=== PATIENT | female | born 1985 | race Caucasian/White ===

== ENCOUNTER 2017-10-13 14:17 | Emergency (ER) | payer OTHER ==
[2017-10-13] MEDS ORDERED: Lactated Ringer's 1,000 ML IV SCH (15:00)
[2017-10-13 15:22] LABS: SQUAMOUS EPITHIAL 8 /hpf (0-5); URINE BACTERIA OCC (<OCC); URINE BILIRUBIN NEGATIVE (NEGATIVE); URINE BLOOD NEGATIVE (NEGATIVE); URINE CLARITY Hazy (Clear); URINE COLOR Yellow (YELLOW); URINE GLUCOSE (UA) NORMAL (Normal); URINE LEUKOCYTE ESTERASE NEG Leu/uL (Negative); URINE PROTEIN NEGATIVE (NEGATIVE); URINE UROBILINOGEN NORMAL mg/dL (0.2-1.0)
--- NOTE | 2017-10-13 15:47 | OBDCSUM ---
Datetime: 10/13/2017 15:45 Discharged to, Provider: Home Follow up at, Provider: 2-3days Follow up in weeks, Provider: clinic Discharge Comment, Provider: pt ferls better. dc home ptl given po hy f/u in pmd in 2-3 days Discharge Diagnosis Prov Other: 31week nst r/o rom
--- NOTE | 2017-10-13 15:48 | OBHP ---
Datetime: 10/13/2017 14:54 IP Adm Impression: , intrauterine IP Admit Plan: Observation/Evaluation Admit Comment, IP Provider: Subjective: CC: "Gush of fluid from Vagina" HPI: Patient is a 32 year old female who presents to the [facility] emergency department for evaluation and treatment of a gush of fluid from vagina, which occured at approximately 1:30pm on 10/13/2017 whic h occured without any provoking event. Patient states she was experiencing pelvic cramps which occure d after experiencing the flulid leakage. The cramps on continuous in nature and are describes as bein g dull and achy in nature. States the estimated due date is December 11, 2017. Currently is experiencing movement. Denies fever, chills, chest pain, SOB, abdominal pain, N/V, diarrhea, constipation, and urinary sy mtpoms. 12 point ROS negative except as indicated in HPI. 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 Pre-Term : - patient membranes are intact, nitrizine test is negative - LR @ 125 - UA ordered and pending - Patient seen, case reviewed with, and plan approved by attending physician, Dr. Holm. ua neg pt ferls better. dc home ptl given po hy f/u in pmd in 2-3 days Extremities - PN: Normal Abdomen - PN: Normal Breast - PN: Not Done Lungs - PN: Normal Heart - PN: Normal Neurologic - PN: Normal HEENT - PN: Normal General - PN: Normal Membranes, Provider: Intact Comments, ACOG Physical Exam: sse neh ntrazine neg,no pooling Nitrazine Provider: Negative EGA AdmitDate IP: 31.4 Vital Signs Provider: Reviewed IP Chief Complaint: Suspected ruptured membranes Dilatation, Provider: 0
[2017-10-13 20:33] VITALS: BP 102/57; PULSE 90; RESP 18; TEMP 97.2; O2SAT 98
== END 2017-10-13 16:31 | disposition home or self-care (01) ==
LOC: C.EROB 14:17
DX: O26.893 Other specified pregnancy related conditions, third trimester (principal); Z3A.31 31 weeks gestation of pregnancy
CPT/HCPCS: 81001; 99283; J7120

== ENCOUNTER 2018-07-25 07:26 | Day surgery (SDC) | payer MEDICAID ==
[2018-05-31 14:39] VITALS: BMI 27.4
[2018-07-25] MEDS ORDERED: Bupivacaine 0.25% 20 ML INJ IJ ONE (11:58)
[2018-07-25] MEDS ORDERED: Lidocaine/Epinephrine 1% 1:100000 10 ML IJ ONE (11:58)
[2018-07-25] MEDS ORDERED: ceFAZolin 1 gm in NS 2 GM/200 ML BAG IVPB ONE (11:59)
[2018-07-25] MEDS ORDERED: Propofol 10 mg/ml Inj (20 ML) ONE (12:00)
[2018-07-25] MEDS ORDERED: Midazolam 2 MG/2 ML VIAL ONE (12:01)
[2018-07-25] MEDS ORDERED: Rocuronium 10 mg/ml (5 ml) ONE (12:07)
[2018-07-25] MEDS ORDERED: Bupivacaine Liposomal Inj 20 ml INJ ONE (12:39)
[2018-07-25] MEDS ORDERED: Sodium Chloride 0.9% 40 ML IV ONE (12:50)
[2018-07-25] MEDS ORDERED: Neostigmine 1:1000 (1 mg/ml) Inj ONE (14:20)
[2018-07-25] MEDS ORDERED: Morphine 4 MG/ML VIAL ONE (14:23)
[2018-07-25] MEDS ORDERED: Lactated Ringer's 1,000 ML IV ONE (14:26)
--- NOTE | 2018-07-25 14:31 | PCM.SURG1 ---
Surgeon's Initial Post Op Note - Surgeon's Notes Surgeon: Jessica Geospatial Developer: PGY4, Sabi OTT Type of Anesthesia: General Endo, Block Regional Pre-Operative Diagnosis: 1. Umbilical hernia. 2. Diastasis Recti Operative Findings: Umbilical hernia, Diastasis Recti Post-Operative Diagnosis: 1. Umbilical hernia. 2. Diastasis Recti Operation Performed: Robotic assisted laparoscopic umbilical hernia and diastasis repair with mesh Specimen/Specimens Removed: Hernia fat Estimated Blood Loss: EBL {In ML}: 10 Blood Products Given: N/A Drains Used: No Drains Post-Op Condition: Good Date of Surgery/Procedure: 07/25/18 Time of Surgery/Procedure: 12:15
[2018-07-25] MEDS ORDERED: Oxycodone/Acetaminophen 5/325 mg Tab PO ONE (14:32)
[2018-07-25] MEDS: HYDROmorphone 0.5 mg/0.5 ml ISec IVP PRN ×2 (14:50→15:20)
[2018-07-25] MEDS ORDERED: HYDROmorphone 0.5 mg/0.5 ml ISec IVP PRN (16:22)
[2018-07-25] MEDS ORDERED: Lactated Ringer's 500 ML IV ONE (16:31)
[2018-07-25 16:39] VITALS: PULSE 101; RESP 24; TEMP 99
[2018-07-25 16:56] VITALS: BP 111/68; O2SAT 98
--- NOTE | 2018-07-26 14:45 | OP ---
PROCEDURE DATE: 07/25/2018 PREOPERATIVE DIAGNOSES: 1. Umbilical hernia. 2. Diastasis of recti. POSTOPERATIVE DIAGNOSES: 1. Umbilical hernia 2 x 2 cm size. 2. Diastasis of rectus muscles 6 x 5 cm size. OPERATIONS DONE: 1. Robotic umbilical hernia repair with mesh. 2. Robotic diastasis of recti repair and diastasis of rectus muscles repair with mesh. 3. Laparoscopic bilateral transverse abdominis plane block placement. SURGEON: Elliott Lopez MD ASSISTANTS: NAMRATA Coppola and John Astudillo, PGY-4 resident. TYPE OF ANESTHESIA: General endotracheal tube anesthesia. ESTIMATED BLOOD LOSS: Around 10 mL. DRAIN: None. PATHOLOGY: Hernial sac and contents were sent to the pathology. COMPLICATIONS: None. INTRAOPERATIVE FINDINGS: The patient had approximately 2 x 2 cm umbilical hernia containing omentum and the patient also had 6 x 5 cm large diastasis of rectus muscles in a supraumbilical region. DESCRIPTION OF PROCEDURE: On intraoperative steps, this is a 32-year-old female who was diagnosed with umbilical hernia as well as the diastasis of rectus muscles with abdominal pain and the patient was consented for the robotic umbilical hernia repair and diastasis of rectus muscles repair. The patient was brought to the OR, placed supine on the operating table. After induction of the anesthesia, the abdomen was prepped and draped in the usual sterile fashion. Using the Visiport technique, left upper quadrant incision was made. Peritoneal cavity was entered. Pneumo was created and another two 8 mm port was placed in the left flank and left lower quadrant and the robot was brought in. Camera arm as well as arm 1 and arm 2 were docked and first the omentum that was attached to the hernia sac was and then the preperitoneal fat surrounding the diastasis of the rectus muscle area was also dissected to prepare for the proper repair. Now, first umbilical hernial defect was closed in 2 layers, #1 Prolene V-Loc suture in 2-layer and then the diastasis of rectus muscles was repaired in 2-layer. After proper repair of diastasis of rectus muscles that was approximately 6 x 5 cm large in size, the 15 x 8 cm mesh was introduced and the umbilical hernia defect as well as the diastasis of rectus defect was covered with mesh. After proper implantation of the mesh at both places, the laparoscopic bilateral TAP block was given. The 30:30 mL of long-acting local anesthetic was introduced into the transverse abdominal muscle plane block bilaterally and after proper TAP block, the specimen was taken out and it was for the pathology. The pneumoperitoneum was deflated and all the port was taken out under vision and all the port was closed in 2-layer with subcu with 2-0 Vicryl, skin with a 4-0 Monocryl and dry sterile dressing was applied. The patient tolerated the procedure. Count of instrument and gauze was correct. There was no apparent complication. The patient was extubated in OR, sent to the postanesthesia care unit in stable condition. Elliott Lopez MD
== END 2018-07-25 17:10 | disposition home or self-care (01) ==
LOC: C.SDS 07:26
PROVIDERS: ATTEND Surgery Surgical Critical Care
DX: K42.9 Umbilical hernia without obstruction or gangrene (principal)
CPT/HCPCS: 49585; 88302; C1781; J0690; J1170; J1885; J2001; J2250; J2270; J2704; J2710; J3010; J7120